=== PATIENT | male | born 1950 | race Caucasian/White ===

== ENCOUNTER 2020-08-10 08:30 | Outpatient (RCR) | payer OTHER, SELFPAY ==
[2020-07-27 09:03] VITALS: BP 133/77; PULSE 104; TEMP 36.3
--- NOTE | 2020-07-27 12:10 | PCM.WC.HP ---
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 Status: Acute Code(s): C79.9 - Secondary malignant neoplasm of unspecified site; C67.9 - Malignant neoplasm of bladder, unspecified (3) Cancer of the bladder, stage IV Status: Acute Code(s): C67.9 - Malignant neoplasm of bladder, unspecified (4) PAD (peripheral artery disease) Status: Acute Code(s): I73.9 - Peripheral vascular disease, unspecified (5) History of heroin abuse Status: Acute Code(s): F11.11 - Opioid abuse, in remission History of Present Illness Date of Service: 07/27/20 Chief Complaint: Nonhealing abdominal ulcer History of Wound: Osvaldo Roman presents to the wound healing center on 07/27/2020 for evaluation of a nonhealing abdominal ulcer. He has a past medical history significant for stage IV bladder cancer, hypertension, hyperlipidemia, COPD, peripheral arterial disease, carotid stenosis and past heroin abuse. In 2019, he underwent a total cystectomy for stage IV bladder cancer. He has a urostomy. He reports that since that time, he had this area of his incision which would not heal. In February 2019 he underwent debridement of this area of his abdomen, and it subsequently healed. However, the area reopened and has remained open since May of 2019. He reports he has been cleansing the area with antibacterial soap and water daily. He at times uses iodoform gauze to dress his abdominal ulcer. He reports a small amount of brownish colored drainage, which is malodorous. 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 The patient is a former cigarette smoker, and currently smokes 1 cigar a day. He has had a chronic poor appetite and poor nutritional intake. He has chronic nausea and gastrointestinal fluctuations between constipation and diarrhea. The patient denies any fever, or chills. He denies any increasing pain, redness, swelling, or purulent drainage from affected area. Past Medical History Past Medical History: Chronic Problems Skin ulcer of abdominal wall with fat layer exposed (Chronic) COPD (chronic obstructive pulmonary disease) (Chronic) Hypertension (Chronic) Hyperlipidemia (Chronic) Review of Systems Constitutional: Reports: Weight Change. Denies: Chills, Fever Eyes: Denies: Pain, Vision Change HEENT: Denies: Difficulty Hearing, Difficulty Swallowing, Sinus Congestion Cardiovascular: Denies: Chest Pain, Palpitations Respiratory: Denies: Cough, Wheezing Gastrointestinal: Reports: Constipation, Diarrhea, Nausea Genitourinary: Reports: - - Urostomy Skin: Reports: Wounds - Abdominal ulcer Neurological: Denies: Slurred speech, Confusion Endocrine: Denies: Heat/ Cold Intolerance, Polydipsia, Polyuria Hematologic/ Lymphatic: Denies: Easy Bruising, Easy Bleeding - Physical Exam Vital Signs Temp Pulse BP 97.3 F L 104 H 133/77 H 07/27/20 09:03 07/27/20 09:03 07/27/20 09:03 General: Alert, Cooperative, No apparent distress HEENT: Atraumatic, Normocephalic Oral: Moist Mucosa Neck: Supple, Trachea Midline Lungs: Clear to auscultation, Normal air movement, No rhonchi, No wheeze, No rales Cardiovascular: Regular rate, Regular Rhythm Abdomen: Non Tender, - - Urostomy, stoma is red and moist, urine is yellow and clear Extremities: No clubbing, No cyanosis, No edema, Capillary Refill Less than 3 Seconds Skin: Ulcer/ Wound - Infraumbilical abdominal ulcer with subcutaneous layer exposed. Small amount of slough and devitalized tissue present. No periulcer erythema, warmth or swelling. No purulent or malodorous drainage. Wound Measurements and Assessment WC - Nurse 1 - General Ulcer Measurement Start: 07/27/20 09:02 Freq: Status: Active Protocol: Activity Type Activity Date Activity User E-Sign Co-Sign Detail Recorded Client Recorded Date Recorded By Document 07/27/20 09:03 KR [id number] 07/27/20 09:25 KR 07/27/20 09:03 Wound Center Nurse 1 [Ulcer Assessment] # 1 Abdomen -Current Size (cm) - Length 0.8 -Current Size (cm) - Width 1.1 -Current Size (cm) - Depth 0.2 -Total Square Cm 0.88 -Exudate Amt Small -Exudate Type Serosanguineous -Wound Margin Distinct, Outline Attached -Granulation Amt Small (1-33%) -Granulation Quality Red -Necrosis Amt Small (1-33%) -Necrotic Tissue Type Adherent Slough -Texture (Marichuy-wound Skin Appearance) Assessed, Scarring -Moisture (Marichuy-wound Skin Appearance No Abnormality, ) Assessed -Color (Marichuy-wound Skin Appearance) No Abnormality, Assessed -Temperature (Marichuy-wound Skin No Abnormality Appearance) (Pt Warm) -Tenderness on Palpation (Marichuy-wound No Skin Appearance) -Ulcer Cleansing Rinsed/ Irrigated with Saline -Foul Odor after Cleansing No -Anesthetic Used 5% Lidocaine Gel SP - Nurse 2 - General Ulcer CM Notes Start: 07/27/20 09:02 Freq: Status: Active Protocol: Activity Type Activity Date Activity User E-Sign Co-Sign Detail Recorded Client Recorded Date Recorded By Document 07/27/20 09:40 JYOTI [id number] 07/27/20 09:59 07/27/20 09:40 Wound Center Nurse 2 [Procedure/Treatment] -Time 09:52 -Correct Patient Yes -Correct Side, Site, Position Yes -Correct Procedure Yes -Procedure Performed Yes -Type of Procedure Debridement -Clinical Debridement Subcutaneous -Tissue Removed Subcutaneous -Post Debridement (cm) - Length 1 -Post Debridement (cm) - Width 1.1 -Post Debridement (cm) - Depth 0.2 -Total Square (Post) (cm) 1.1 -Area of Debridement (cm) - Length 1 -Area of Debridement (cm) - Width 1.1 -Total Square (Area) (cm) 1.1 -Tunneling No -Undermining/Tunneling No -Circular Undermining No -Wound/Ulcer Outcome Not Healed -Ulcer Cleansing Rinsed/ Irrigated with Saline -Foul Odor after Cleansing No -Bioengineered Tissue No -Bleeding Controlled with Pressure -Offloading No -Treatment Response Procedure Tolerated Well -Debridement - Subq, 1st 20sq cm Yes [See Physician Procedure note for Specifics] Pain Scale: 0-10 Numeric [Pain] -Is Patient Pain Free? Yes SP - Nurse 3 - General Ulcer D/C NN Start: 07/27/20 09:02 Freq: Status: Cancelled Protocol: Activity Type Activity Date Activity User E-Sign Co-Sign Detail Recorded Client Recorded Date Recorded By Document 07/27/20 09:03 KR [id number] 07/27/20 09:25 KR Edit Status 07/27/20 09:25 KR Active=>Cancelled [id number] 07/27/20 09:25 KAREN 07/27/20 09:03 Vital Signs [Temperature Protocol: VS] -Temperature (97.8 F-99.1 F) 97.3 F L -Temperature Source Temporal [Pulse] -Pulse Rate (60-100) 104 H -Pulse Location Monitor [Blood Pressure] -Blood Pressure (90/60-120/80) 133/77 H -Blood Pressure Mean (mm Hg) 95 -Source Monitor -Position Sitting -Blood Pressure Location Right Arm Pain Scale: 0-10 Numeric [Pain] -Is Patient Pain Free? Yes Musculoskeletal: Muscle Wasting Neurological: Neuro grossly intact Psych/Mental Status: Normal Affect, Appropriate Debridement Note Post-Debridement Measurements/Treatment WC - Nurse 2 - General Ulcer CM Notes Start: 07/27/20 09:02 Freq: Status: Active Protocol: Activity Type Activity Date Activity User E-Sign Co-Sign Detail Recorded Client Recorded Date Recorded By Document 07/27/20 09:40 JYOTI [id number] 07/27/20 09:59 JYOTI 07/27/20 09:40 Wound Center Nurse 2 # 1 Abdomen -Time 09:52 -Correct Patient Yes -Correct Side, Site, Position Yes -Correct Procedure Yes -Procedure Performed Yes -Type of Procedure Debridement -Clinical Debridement Subcutaneous -Tissue Removed Subcutaneous -Post Debridement (cm) - Length 1 -Post Debridement (cm) - Width 1.1 -Post Debridement (cm) - Depth 0.2 -Total Square (Post) (cm) 1.1 -Area of Debridement (cm) - Length 1 -Area of Debridement (cm) - Width 1.1 -Total Square (Area) (cm) 1.1 -Tunneling No -Undermining/Tunneling No -Circular Undermining No -Wound/Ulcer Outcome Not Healed -Ulcer Cleansing Rinsed/ Irrigated with Saline -Foul Odor after Cleansing No -Bioengineered Tissue No -Bleeding Controlled with Pressure -Offloading No -Treatment Response Procedure Tolerated Well -Debridement - Subq, 1st 20sq cm Yes Pain Scale: 0-10 Numeric Is Patient Pain Free? Yes WC - Nurse 3 - General Ulcer D/C NN Start: 07/27/20 09:02 Freq: Status: Cancelled Protocol: Activity Type Activity Date Activity User E-Sign Co-Sign Detail Recorded Client Recorded Date Recorded By Document 07/27/20 09:03 KAREN [id number] 07/27/20 09:25 KR 07/27/20 09:03 Vital Signs Temperature (97.8 F-99.1 F) 97.3 F L Temperature Source Temporal Pulse Rate (60-100) 104 H Pulse Location Monitor Blood Pressure (90/60-120/80) 133/77 H Blood Pressure Mean (mm Hg) 95 Source Monitor Position Sitting Blood Pressure Location Right Arm Pain Scale: 0-10 Numeric Is Patient Pain Free? 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 Franci applied. At home wound-care instructions: Cleanse the ulcer daily with antibacterial soap and water. Apply new Franci dressing daily. Change Franci dressing more frequently if contaminated. Avoid pressure/friction of clothing waistbands at the site of the abdominal ulcer. Diet: Patient encouraged to increase protein and vitamin C intake while taking caution to avoid high carbohydrate and/or sugar intake. He was educated on the importance of protein and its role in wound healing. The patient was educated on the importance of smoking cessation. Labs/cultures/imaging: Cultures deferred today; no clinical signs or symptoms of infection. Lab results will be requested from [facility] for review. Follow-up: Return to clinic in 2 weeks for re-evaluation. Return sooner or report to the emergency room should symptoms worsen, or new symptoms arise. Note: [employer] speech recognition oven press tender software was used to create portions of this document. Sound-alike and misspelled words, as well as other oven press tender errors may be contained in the documentation. Office Visits / Consults: [id number] OV L4 New [id number]: [id number] Kellei subq tissue 20 sq cm/<
--- NOTE | 2020-08-01 15:38 | WC ---
Patients called stated that she might think his wound was infected, she was instructed to have the patient go to the ER for evaluation and possible treatment. She stated that she would have the physician at the cancer clinic evaluate the wound the next day.
[2020-08-10 08:41] VITALS: BP 128/75; PULSE 103; TEMP 35.8
--- NOTE | 2020-08-10 09:01 | PN.PCM_ITS ---
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 Status: Acute Code(s): C79.9 - Secondary malignant neoplasm of unspecified site; C67.9 - Malignant neoplasm of bladder, unspecified (3) Cancer of the bladder, stage IV Status: Acute Code(s): C67.9 - Malignant neoplasm of bladder, unspecified (4) PAD (peripheral artery disease) Status: Acute Code(s): I73.9 - Peripheral vascular disease, unspecified (5) History of heroin abuse Status: Acute Code(s): F11.11 - Opioid abuse, in remission Type of Wound Date of Service: 08/10/20 Chief Complaint: Nonhealing abdominal ulcer History of Wound: Osvaldo Roman presents to the wound healing center on 07/27/2020 for evaluation of a nonhealing abdominal ulcer. He has a past medical history significant for stage IV bladder cancer, hypertension, hyperlipidemia, COPD, peripheral arterial disease, carotid stenosis and past heroin abuse. In 2019, he underwent a total cystectomy for stage IV bladder cancer. He has a urostomy. He reports that since that time, he had this area of his incision which would not heal. In February 2019 he underwent debridement of this area of his abdomen, and it subsequently healed. However, the area reopened and has remained open since May of 2019. He reports he has been cleansing the area with antibacterial soap and water daily. He at times uses iodoform gauze to dress his abdominal ulcer. He reports a small amount of brownish colored drainage, which is malodorous. 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 The patient is a former cigarette smoker, and currently smokes 1 cigar a day. He has had a chronic poor appetite and poor nutritional intake. He has chronic nausea and gastrointestinal fluctuations between constipation and diarrhea. The patient denies any fever, or chills. He denies any increasing pain, redness, swelling, or purulent drainage from affected area. Progress of Wound: The patient returns for a follow-up visit. He has been using Franci to his abdomen ulcer and tolerating this well. The patient denies any fever, chills, nausea, vomiting, or diarrhea. Denies any increasing pain, redness, swelling, or malodorous drainage from affected area. Patient's support person reports a small amount of purulent drainage approximately one week ago which has since resolved. There are no clinical signs of infection today. The patient has a poor appetite, which has been ongoing since beginning radiation therapy. He is not consistent with the use of protein supplementation or Mathew. - Physical Exam Vital Signs Temp Pulse BP 96.5 F L 103 H 128/75 H 08/10/20 08:41 08/10/20 08:41 08/10/20 08:41 General: Alert, Cooperative, No apparent distress HEENT: Atraumatic, Normocephalic Oral: Moist Mucosa Neck: Supple, Trachea Midline Lungs: Normal air movement Abdomen: - - Urostomy, stoma is red and moist, urine is yellow and clear Extremities: Capillary Refill Less than 3 Seconds Skin: Ulcer/ Wound - Infraumbilical abdominal ulcer with subcutaneous layer exposed. Small amount of slough in devitalized tissue present. No periulcer erythema, warmth or swelling. No purulent or malodorous drainage. Wound Measurements and Assessment WC - Nurse 1 - General Ulcer Measurement Start: 07/27/20 09:02 Freq: Status: Active Protocol: Activity Type Activity Date Activity User E-Sign Co-Sign Detail Recorded Client Recorded Date Recorded By Document 08/10/20 08:41 KAREN [id number] 08/10/20 08:45 KAREN 08/10/20 08:41 Wound Center Nurse 1 [Ulcer Assessment] # 1 Abdomen -Current Size (cm) - Length 1 -Current Size (cm) - Width 0.9 -Current Size (cm) - Depth 0.3 -Total Square Cm 0.9 -Exudate Amt Medium -Exudate Type Serosanguineous -Wound Margin Distinct, Outline Attached -Granulation Amt Medium (34-66%) -Granulation Quality Red -Necrosis Amt Medium (34-66%) -Necrotic Tissue Type Adherent Slough -Texture (Marichuy-wound Skin Appearance) Assessed, Scarring -Moisture (Marichuy-wound Skin Appearance No Abnormality, ) Assessed -Color (Marichuy-wound Skin Appearance) No Abnormality, Assessed -Temperature (Marichuy-wound Skin No Abnormality Appearance) (Pt Warm) -Tenderness on Palpation (Marichuy-wound No Skin Appearance) -Ulcer Cleansing Rinsed/ Irrigated with Saline -Foul Odor after Cleansing No -Anesthetic Used 4% Lidocaine Solution Musculoskeletal: Muscle Wasting Psych/Mental Status: Normal Affect, Appropriate Debridement Note Post-Debridement Measurements/Treatment SP - Nurse 2 - General Ulcer CM Notes Start: 07/27/20 09:02 Freq: Status: Active Protocol: Activity Type Activity Date Activity User E-Sign Co-Sign Detail Recorded Client Recorded Date Recorded By Document 07/27/20 09:40 [id number] 07/27/20 09:59 JYOTI 07/27/20 09:40 Wound Center Nurse 2 # 1 Abdomen -Time 09:52 -Correct Patient Yes -Correct Side, Site, Position Yes -Correct Procedure Yes -Procedure Performed Yes -Type of Procedure Debridement -Clinical Debridement Subcutaneous -Tissue Removed Subcutaneous -Post Debridement (cm) - Length 1 -Post Debridement (cm) - Width 1.1 -Post Debridement (cm) - Depth 0.2 -Total Square (Post) (cm) 1.1 -Area of Debridement (cm) - Length 1 -Area of Debridement (cm) - Width 1.1 -Total Square (Area) (cm) 1.1 -Tunneling No -Undermining/Tunneling No -Circular Undermining No -Wound/Ulcer Outcome Not Healed -Ulcer Cleansing Rinsed/ Irrigated with Saline -Foul Odor after Cleansing No -Bioengineered Tissue No -Bleeding Controlled with Pressure -Offloading No -Treatment Response Procedure Tolerated Well -Debridement - Subq, 1st 20sq cm Yes Pain Scale: 0-10 Numeric Is Patient Pain Free? Yes - Nurse 3 - General Ulcer D/C NN Start: 07/27/20 09:02 Freq: Status: Cancelled Protocol: Activity Type Activity Date Activity User E-Sign Co-Sign Detail Recorded Client Recorded Date Recorded By Document 07/27/20 09:03 KR [id number] 07/27/20 09:25 KR 07/27/20 09:03 Vital Signs Temperature (97.8 F-99.1 F) 97.3 F L Temperature Source Temporal Pulse Rate (60-100) 104 H Pulse Location Monitor Blood Pressure (90/60-120/80) 133/77 H Blood Pressure Mean (mm Hg) 95 Source Monitor Position Sitting Blood Pressure Location Right Arm Pain Scale: 0-10 Numeric Is Patient Pain Free? 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 Franci applied. At home wound- care instructions: Cleanse the ulcer daily with antibacterial soap and water. Apply new Franci dressing daily. Change Franci dressing more frequently if contaminated. Avoid pressure/friction of clothing waistbands at the site of the abdominal ulcer. Diet: Patient encouraged to increase protein and vitamin C intake while taking caution to avoid high carbohydrate and/or sugar intake. He was educated on the importance of protein and its role in wound healing. The patient was educated on the importance of smoking cessation. Labs/cultures/imaging: Cultures deferred today; no clinical signs or symptoms of infection. Lab results will again be requested from [facility] for review. Follow-up: Return to clinic in 1 week for re-evaluation. Return sooner or report to the emergency room should symptoms worsen, or new symptoms arise. Note: [employer] speech recognition vice president [employer] general [employer] [place] software was used to create portions of this document. Sound-alike and misspelled words, as well as other vice president [employer] general [employer] [place] errors may be contained in the documentation. [id number]: [id number] Kellie subq tissue 20 sq cm/<
== END 2020-08-12 23:59 ==
LOC: WC 08:30
PROVIDERS: PCP Internal Medicine; Referring Provider Nurse Practitioner Primary Care; Visit Provider Nurse Practitioner Family
DX: L98.492 Non-pressure chronic ulcer of skin of other sites with fat layer exposed (principal); C79.9 Secondary malignant neoplasm of unspecified site; C67.9 Malignant neoplasm of bladder, unspecified; I73.9 Peripheral vascular disease, unspecified; E78.5 Hyperlipidemia, unspecified; I10 Essential (primary) hypertension; J44.9 Chronic obstructive pulmonary disease, unspecified; F11.11 Opioid abuse, in remission; Z93.6 Other artificial openings of urinary tract status; K59.00 Constipation, unspecified; F17.290 Nicotine dependence, other tobacco product, uncomplicated
CPT/HCPCS: 11042; 99213; G0463

== ENCOUNTER 2020-08-31 08:30 | Outpatient (RCR) | payer OTHER, SELFPAY ==
[2020-08-13 00:37] VITALS: BP 128/75; PULSE 103; TEMP 35.8
[2020-08-17 08:36] VITALS: BP 124/83; PULSE 102; TEMP 35.6
--- NOTE | 2020-08-17 09:01 | PN.PCM_ITS ---
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 He has a past medical history significant for stage IV bladder cancer, hypertension, hyperlipidemia, COPD, peripheral arterial disease, carotid stenosis and past heroin abuse. In 2019, he underwent a total cystectomy for stage IV bladder cancer. He has a urostomy. He reports that since that time, he had this area of his incision which would not heal. In February 2019 he underwent debridement of this area of his abdomen, and it subsequently healed. However, the area reopened and has remained open since May of 2019. He reports he has been cleansing the area with antibacterial soap and water daily. He at times uses iodoform gauze to dress his abdominal ulcer. He reports a small amount of brownish colored drainage, which is malodorous. 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 The patient is a former cigarette smoker, and currently smokes 1 cigar a day. He has had a chronic poor appetite and poor nutritional intake. He has chronic nausea and gastrointestinal fluctuations between constipation and diarrhea. The patient denies any fever, or chills. He denies any increasing pain, redness, swelling, or purulent drainage from affected area. Progress of Wound: The patient returns for a follow-up visit. He has been using Franci to his abdomen ulcer and tolerating this well. His wound is slowly improving. A retained suture was removed in its entirety from the wound today. The patient denies any fever, chills, nausea, vomiting, or diarrhea. Denies any increasing pain, redness, swelling, or purulent and/or malodorous drainage from affected area. There are no clinical signs of infection today. The patient has a poor appetite, which has been ongoing since beginning radiation therapy. He has not been consistent with the use of protein supplementation or Mathew, though he reports improvement in his diet in the past week. - Physical Exam Vital Signs Temp Pulse BP 96.0 F L 102 H 124/83 H 08/17/20 08:36 08/17/20 08:36 08/17/20 08:36 General: Alert, Cooperative, No apparent distress HEENT: Normocephalic Lungs: Normal air movement Abdomen: Soft, Non Tender Extremities: Capillary Refill Less than 3 Seconds Skin: Ulcer/ Wound - Infraumbilical abdominal ulcer with subcutaneous layer exposed. Small amount of slough and devitalized tissue present. No periulcer erythema, warmth, or swelling. No purulent or malodorous drainage. A single, retained blue suture was identified and removed in its entirety from within the ulcer. Wound Measurements and Assessment WC - Nurse 1 - General Ulcer Measurement Start: 08/17/20 08:36 Freq: Status: Active Protocol: Activity Type Activity Date Activity User E-Sign Co-Sign Detail Recorded Client Recorded Date Recorded By Document 08/17/20 08:36 KAREN [id number] 08/17/20 08:42 KAREN 08/17/20 08:36 Wound Center Nurse 1 [Ulcer Assessment] # 1 Abdomen -Current Size (cm) - Length 1 -Current Size (cm) - Width 1 -Current Size (cm) - Depth 0.1 -Total Square Cm 1 -Exudate Amt None Present -Wound Margin Distinct, Outline Attached -Granulation Amt Medium (34-66%) -Granulation Quality Pale -Necrosis Amt Medium (34-66%) -Necrotic Tissue Type Adherent Slough -Texture (Marichuy-wound Skin Appearance) Assessed, Scarring -Moisture (Marichuy-wound Skin Appearance No Abnormality, ) Assessed -Color (Marichuy-wound Skin Appearance) No Abnormality, Assessed -Temperature (Marichuy-wound Skin No Abnormality Appearance) (Pt Warm) -Tenderness on Palpation (Marichuy-wound No Skin Appearance) -Ulcer Cleansing Rinsed/ Irrigated with Saline -Foul Odor after Cleansing No -Anesthetic Used 5% Lidocaine Gel Psych/Mental Status: Normal Affect, Appropriate Debridement Note Wound debrided: Infraumbilical abdominal ulcer Laterality: Not Applicable Type of Debridement: Excisional debridement Anesthesia Used: 5% Lidocaine Gel Depth: in the subcutaneous layer Percentage of wound debrided: 100 Instrument Used: 3mm curette Tissue Removed: Slough and devitalized tissue; single retained suture Severity: Fat Layer Exposed Amount of bleeding with debridement: Mild Bleeding Controlled with: Pressure Patient tolerated procedure well Assessment/Plan Active Problems Skin ulcer of abdominal wall with fat layer exposed (Chronic) Metastasis from bladder cancer (Chronic) PAD (peripheral artery disease) (Chronic) History of heroin abuse (Acute) Wound dehiscence, surgical (Chronic) Assessment: As above Plan: Debridement performed today in clinic. A single, retained blue suture was identified and removed in its entirety from within the infraumbilical abdominal ulcer. I suspect this may have been a factor in the patient's initial reopening of his abdominal surgical site and his continued delayed abdominal wound healing. Franci applied. At home wound-care instructions: Cleanse the ulcer daily with antibacterial soap and water. Apply new Franci dressing daily. Change Franci dressing more frequently if contaminated. Avoid pressure/friction of clothing waistbands at the site of the abdominal ulcer. Diet: Patient encouraged to increase protein and vitamin C intake while taking caution to avoid high carbohydrate and/or sugar intake. He was educated on the importance of protein and its role in wound healing. The patient was educated on the importance of smoking cessation. Labs/cultures/imaging: Cultures deferred today; no clinical signs or symptoms of infection. No lab results have yet been received from [facility] for review. Follow-up: Return to clinic in 2 weeks for re-evaluation. Return sooner or report to the emergency room should symptoms worsen, or new symptoms arise. Note: charming charlie speech recognition bagger and stock handler helper software was used to create portions of this document. Sound-alike and misspelled words, as well as other bagger and stock handler helper errors may be contained in the documentation. [id number]: [id number] Kellie subq tissue 20 sq cm/<
[2020-08-31 08:30] VITALS: BP 155/77; PULSE 88; RESP 18; TEMP 36
--- NOTE | 2020-08-31 09:20 | PN.PCM_ITS ---
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 He has a past medical history significant for stage IV bladder cancer, hypertension, hyperlipidemia, COPD, peripheral arterial disease, carotid stenosis and past heroin abuse. In 2019, he underwent a total cystectomy for stage IV bladder cancer. He has a urostomy. He reports that since that time, he had this area of his incision which would not heal. In February 2019 he underwent debridement of this area of his abdomen, and it subsequently healed. However, the area reopened and has remained open since May of 2019. He reports he has been cleansing the area with antibacterial soap and water daily. He at times uses iodoform gauze to dress his abdominal ulcer. He reports a small amount of brownish colored drainage, which is malodorous. 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 The patient is a former cigarette smoker, and currently smokes 1 cigar a day. He has had a chronic poor appetite and poor nutritional intake. He has chronic nausea and gastrointestinal fluctuations between constipation and diarrhea. The patient denies any fever, or chills. He denies any increasing pain, redness, swelling, or purulent drainage from affected area. Progress of Wound: The patient returns for a follow-up visit. He has been using Franci to his abdomen ulcer and tolerating this well. His wound is slowly improving. A retained suture was removed in its entirety from the wound on 08/24/20. The patient denies any fever, chills, nausea, vomiting, or diarrhea. Denies any increasing pain, redness, swelling, or purulent and/or malodorous drainage from affected area. Reports only a small amount of drainage. There are no clinical signs of infection today. The patient reports increasing his food and protein intake. - Physical Exam Vital Signs Temp Pulse Resp BP 96.8 F L 88 18 155/77 H 08/31/20 08:30 08/31/20 08:30 08/31/20 08:30 08/31/20 08:30 General: Alert, Cooperative, No apparent distress Oral: Moist Mucosa Extremities: Capillary Refill Less than 3 Seconds Skin: Ulcer/ Wound - Infraumbilical abdominal ulcer with subcutaneous layer exposed. Small amount of slough and devitalized tissue present. No periulcer erythema, warmth or swelling. No purulent or malodorous drainage. Wound Measurements and Assessment WC - Nurse 1 - General Ulcer Measurement Start: 08/17/20 08:36 Freq: Status: Active Protocol: Activity Type Activity Date Activity User E-Sign Co-Sign Detail Recorded Client Recorded Date Recorded By Document 08/31/20 08:30 DE [id number] 08/31/20 08:36 MS 08/31/20 08:30 Wound Center Nurse 1 [Ulcer Assessment] # 1 Abdomen -Current Size (cm) - Length 0.5 -Current Size (cm) - Width 0.4 -Current Size (cm) - Depth 0.1 -Total Square Cm 0.20 -Photo Taken No -Exudate Amt Small -Exudate Type Yellow/Green -Wound Margin Distinct, Outline Attached -Granulation Amt Large (67-100%) -Granulation Quality Red -Necrosis Amt Small (1-33%) -Necrotic Tissue Type Adherent Slough -Structure Exposed N/A -Texture (Marichuy-wound Skin Appearance) Scarring -Moisture (Marichuy-wound Skin Appearance Dry/Scaly ) -Color (Marichuy-wound Skin Appearance) No Abnormality -Temperature (Marichuy-wound Skin No Abnormality Appearance) (Pt Warm) -Tenderness on Palpation (Marichuy-wound No Skin Appearance) -Ulcer Cleansing Wound Cleanser -Foul Odor after Cleansing No -Anesthetic Used 4% Lidocaine Solution - Nurse 3 - General Ulcer D/C NN Start: 08/17/20 08:36 Freq: Status: Active Protocol: Activity Type Activity Date Activity User E-Sign Co-Sign Detail Recorded Client Recorded Date Recorded By Document 08/31/20 09:01 MS [id number] 08/31/20 09:02 MS 08/31/20 09:01 Wound Care Nurse 3 [Wound Dressing] -Ulcer Cleansing Rinsed/ Irrigated with Saline -Primary Dressing Applied Promogran Franci Matter -Primary Dressing Covered/Secured Dry Gauze, with Secured with Tape -Promogran Franci Matter 1 Pain Scale: 0-10 Numeric [Pain] -Is Patient Pain Free? Yes - Visit Discharge [Visit Discharge Information] -Discharge Condition Stable -Ambulatory Status Ambulatory -Medication Reconcilliation completed No & provided to patient/care provider -Clinical Summary of Care Provided Yes Musculoskeletal: Tenderness - on debridement of wound Psych/Mental Status: Normal Affect, Appropriate Debridement Note Post-Debridement Measurements/Treatment SP - Nurse 2 - General Ulcer CM Notes Start: 08/17/20 08:36 Freq: Status: Active Protocol: Activity Type Activity Date Activity User E-Sign Co-Sign Detail Recorded Client Recorded Date Recorded By Document 08/17/20 10:04 KEVIN [id number] 08/17/20 10:05 PL 08/17/20 10:04 Wound Center Nurse 2 # 1 Abdomen -Time 08:49 -Correct Patient Yes -Correct Side, Site, Position Yes -Correct Procedure Yes -Procedure Performed Yes -Type of Procedure Debridement -Clinical Debridement Subcutaneous -Tissue Removed Subcutaneous -Post Debridement (cm) - Length 0.9 -Post Debridement (cm) - Width 0.7 -Post Debridement (cm) - Depth 0.5 -Total Square (Post) (cm) 0.63 -Area of Debridement (cm) - Length 0.9 -Area of Debridement (cm) - Width 0.7 -Total Square (Area) (cm) 0.63 -Tunneling No -Undermining/Tunneling No -Circular Undermining No -Wound/Ulcer Outcome Not Healed -Ulcer Cleansing Rinsed/ Irrigated with Saline -Foul Odor after Cleansing No -Bioengineered Tissue No -Bleeding Controlled with Pressure -Treatment Response Procedure Tolerated Well -Debridement - Subq, 1st 20sq cm Yes Pain Scale: 0-10 Numeric Is Patient Pain Free? Yes - Nurse 3 - General Ulcer D/C NN Start: 08/17/20 08:36 Freq: Status: Active Protocol: Activity Type Activity Date Activity User E-Sign Co-Sign Detail Recorded Client Recorded Date Recorded By Document 08/17/20 09:07 KR [id number] 08/17/20 09:08 KR Document 08/31/20 09:01 MS [id number] 08/31/20 09:02 MS 08/17/20 08/31/20 09:07 09:01 Wound Care Nurse 3 # 1 Abdomen -Ulcer Cleansing Rinsed/ Rinsed/ Irrigated with Irrigated with Saline Saline -Primary Dressing Applied Promogran Promogran Franci Matter Franci Matter -Primary Dressing Covered/Secured with Dry Gauze, Dry Gauze, Secured with Secured with Tape Tape -Promogran Franci Matter 1 1 Pain Scale: 0-10 Numeric Is Patient Pain Free? Yes Yes WC - Visit Discharge Discharge Condition Stable Stable Ambulatory Status Ambulatory Ambulatory Transportation Private Auto Accompanied by Medication Reconcilliation completed & No provided to patient/care provider Clinical Summary of Care Provided Yes Wound debrided: Infraumbilical abdominal ulcer Laterality: Not Applicable Type of Debridement: Excisional debridement Depth: in the subcutaneous layer Percentage of wound debrided: 100 Instrument Used: 3mm curette Tissue Removed: Slough and devitalized tissue Severity: Fat Layer Exposed Amount of bleeding with debridement: Mild Bleeding Controlled with: Pressure Patient tolerated procedure well Assessment/Plan Active Problems Skin ulcer of abdominal wall with fat layer exposed (Chronic) Metastasis from bladder cancer (Chronic) PAD (peripheral artery disease) (Chronic) History of heroin abuse (Chronic) Wound dehiscence, surgical (Chronic) Assessment: As above Plan: Debridement performed today in clinic. A single, retained blue suture was identified and removed in its entirety from within the infraumbilical abdominal ulcer on 08/24/2020. I suspect this may have been a factor in the patient's initial reopening of his abdominal surgical site and his continued delayed abdominal wound healing. We will continue Franci dressings, but will change frequency of dressing changes to every other day. At home wound-care instructions: Cleanse the ulcer every other day with antibacterial soap and water. Apply new Franci dressing every other day. Change Franci dressing more frequently if contaminated. Avoid pressure/friction of clothing waistbands at the site of the abdominal ulcer. Diet: Patient encouraged to increase protein and vitamin C intake while taking caution to avoid high carbohydrate and/or sugar intake. He was educated on the importance of protein and its role in wound healing. The patient was educated on the importance of smoking cessation. Labs/cultures/imaging: Cultures deferred today; no clinical signs or symptoms of infection. No lab results have yet been received from [facility] for review; these were again requested today by myself personally. Follow-up: Return to clinic in 2 weeks for re-evaluation. Return sooner or report to the emergency room should symptoms worsen, or new symptoms arise. Note: [employer]vate speech recognition conflicts analyst software was used to create portions of this document. Sound-alike and misspelled words, as well as other conflicts analyst errors may be contained in the documentation. 111xxx-[id number]: [id number] Kellie subq tissue 20 sq cm/<
== END 2020-09-09 23:59 ==
LOC: WC 08:30
PROVIDERS: PCP Internal Medicine; Referring Provider Nurse Practitioner Primary Care; Visit Provider Nurse Practitioner Family
DX: L98.492 Non-pressure chronic ulcer of skin of other sites with fat layer exposed (principal); C67.9 Malignant neoplasm of bladder, unspecified; C77.9 Secondary and unspecified malignant neoplasm of lymph node, unspecified; F11.11 Opioid abuse, in remission; I73.9 Peripheral vascular disease, unspecified; Z93.6 Other artificial openings of urinary tract status; Z87.891 Personal history of nicotine dependence; J44.9 Chronic obstructive pulmonary disease, unspecified; I10 Essential (primary) hypertension; E78.5 Hyperlipidemia, unspecified
CPT/HCPCS: 11042

== ENCOUNTER 2020-09-28 08:30 | Outpatient (RCR) | payer OTHER, SELFPAY ==
[2020-09-10 00:31] VITALS: BP 155/77; PULSE 88; RESP 18; TEMP 36
[2020-09-14 08:34] VITALS: BP 134/81; PULSE 89; TEMP 36.1
--- NOTE | 2020-09-14 12:47 | PCM.WC.PN ---
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 Status: Chronic Code(s): C79.9 - Secondary malignant neoplasm of unspecified site; C67.9 - Malignant neoplasm of bladder, unspecified (4) PAD (peripheral artery disease) Status: Chronic Code(s): I73.9 - Peripheral vascular disease, unspecified (5) Cancer of the bladder, stage IV Status: Resolved Code(s): C67.9 - Malignant neoplasm of bladder, unspecified (6) History of heroin abuse Status: Chronic Code(s): F11.11 - Opioid abuse, in remission Type of Wound Date of Service: 09/14/20 Chief Complaint: Nonhealing abdominal ulcer History of Wound: Osvaldo Roman presents to the wound healing center on 07/27/2020 for evaluation of a nonhealing abdominal ulcer. He has a past medical history significant for stage IV bladder cancer, hypertension, hyperlipidemia, COPD, peripheral arterial disease, carotid stenosis and past heroin abuse. In 2019, he underwent a total cystectomy for stage IV bladder cancer. He has a urostomy. He reports that since that time, he had this area of his incision which would not heal. In February 2019 he underwent debridement of this area of his abdomen, and it subsequently healed. However, the area reopened and has remained open since May of 2019. He reports he has been cleansing the area with antibacterial soap and water daily. He at times uses iodoform gauze to dress his abdominal ulcer. He reports a small amount of brownish colored drainage, which is malodorous. 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 The patient is a former cigarette smoker, and currently smokes 1 cigar a day. He has had a chronic poor appetite and poor nutritional intake. He has chronic nausea and gastrointestinal fluctuations between constipation and diarrhea. The patient denies any fever, or chills. He denies any increasing pain, redness, swelling, or purulent drainage from affected area. Progress of Wound: The patient returns for a follow-up visit. He has been using Franci to his abdomen ulcer and tolerating this well. His wound is slowly improving. A retained suture was removed in its entirety from the wound on 08/24/20. The patient denies any fever, chills, nausea, vomiting, or diarrhea. Denies any increasing pain, redness, swelling, or purulent and/or malodorous drainage from affected area. Reports only a small amount of drainage. There are no clinical signs of infection today. The patient reports increasing his food and protein intake. - Physical Exam Vital Signs Temp Pulse Resp BP 96.9 F L 89 18 134/81 H 09/14/20 08:34 09/14/20 08:34 09/10/20 00:31 09/14/20 08:34 General: Alert, Cooperative, No apparent distress HEENT: Atraumatic Oral: Moist Mucosa Lungs: Normal air movement Extremities: Capillary Refill Less than 3 Seconds Skin: Ulcer/ Wound - Infraumbilical abdominal ulcer with subcutaneous layer exposed. Small amount of slough and devitalized tissue present. No periulcer erythema, warmth or swelling. No purulent or malodorous drainage. Wound Measurements and Assessment WC - Nurse 1 - General Ulcer Measurement Start: 09/14/20 08:32 Freq: Status: Active Protocol: Activity Type Activity Date Activity User E-Sign Co-Sign Detail Recorded Client Recorded Date Recorded By Document 09/14/20 08:34 KAREN [id number] 09/14/20 08:35 KAREN 09/14/20 08:34 Wound Center Nurse 1 [Ulcer Assessment] # 1 Abdomen -Current Size (cm) - Length 0.5 -Current Size (cm) - Width 0.5 -Current Size (cm) - Depth 0.3 -Total Square Cm 0.25 -Exudate Amt Small -Exudate Type Serosanguineous -Wound Margin Distinct, Outline Attached -Granulation Amt Medium (34-66%) -Granulation Quality Red -Necrosis Amt Medium (34-66%) -Necrotic Tissue Type Adherent Slough -Texture (Marichuy-wound Skin Appearance) Assessed, Scarring -Moisture (Marichuy-wound Skin Appearance No Abnormality, ) Assessed -Color (Marichuy-wound Skin Appearance) No Abnormality, Assessed -Temperature (Marichuy-wound Skin No Abnormality Appearance) (Pt Warm) -Tenderness on Palpation (Marichuy-wound No Skin Appearance) -Ulcer Cleansing Rinsed/ Irrigated with Saline -Foul Odor after Cleansing No -Anesthetic Used 4% Lidocaine Solution WC - Nurse 3 - General Ulcer D/C NN Start: 09/14/20 08:32 Freq: Status: Active Protocol: Activity Type Activity Date Activity User E-Sign Co-Sign Detail Recorded Client Recorded Date Recorded By Document 09/14/20 09:37 KAREN [id number] 09/14/20 09:38 KR 09/14/20 09:37 Wound Care Nurse 3 [Wound Dressing] -Ulcer Cleansing Rinsed/ Irrigated with Saline -Primary Dressing Applied Promogran Franci Matter -Primary Dressing Covered/Secured Dry Gauze, with Secured with Tape -Promogran Franci Matter 1 Pain Scale: 0-10 Numeric [Pain] -Is Patient Pain Free? Yes WC - Visit Discharge [Visit Discharge Information] -Discharge Condition Stable -Ambulatory Status Ambulatory -Transportation Private Auto Psych/Mental Status: Normal Affect, Appropriate Debridement Note Post-Debridement Measurements/Treatment WC - Nurse 3 - General Ulcer D/C NN Start: 09/14/20 08:32 Freq: Status: Active Protocol: Activity Type Activity Date Activity User E-Sign Co-Sign Detail Recorded Client Recorded Date Recorded By Document 09/14/20 09:37 KR [id number] 09/14/20 09:38 KR 09/14/20 09:37 Wound Care Nurse 3 # 1 Abdomen -Ulcer Cleansing Rinsed/ Irrigated with Saline -Primary Dressing Applied Promogran Franci Matter -Primary Dressing Covered/Secured with Dry Gauze, Secured with Tape -Promogran Franci Matter 1 Pain Scale: 0-10 Numeric Is Patient Pain Free? Yes WC - Visit Discharge Discharge Condition Stable Ambulatory Status Ambulatory Transportation Private Auto Wound debrided: Infraumbilical ulcer Laterality: Not Applicable Type of Debridement: Excisional debridement Anesthesia Used: 4% Lidocaine Solution Depth: in the subcutaneous layer Percentage of wound debrided: 100 Instrument Used: 3mm curette Tissue Removed: Slough and devitalized tissue Severity: Fat Layer Exposed Amount of bleeding with debridement: Mild Bleeding Controlled with: Pressure Patient tolerated procedure well Assessment/Plan Assessment: As above Plan: Debridement performed today in clinic. A single, retained blue suture was identified and removed in its entirety from within the infraumbilical abdominal ulcer on 08/24/2020. I suspect this may have been a factor in the patient's initial reopening of his abdominal surgical site and his continued delayed abdominal wound healing. We will continue Franci dressings every other day. At home wound-care instructions: Cleanse the ulcer every other day with antibacterial soap and water. Apply new Franci dressing every other day. Change Franci dressing more frequently if contaminated. Avoid pressure/friction of clothing waistbands at the site of the abdominal ulcer. Diet: Patient encouraged to increase protein and vitamin C intake while taking caution to avoid high carbohydrate and/or sugar intake. He was educated on the importance of protein and its role in wound healing. The patient was educated on the importance of smoking cessation. Labs/cultures/imaging: Cultures deferred today; no clinical signs or symptoms of infection. Labs from [facility] were reviewed (08/13/2020; CBCD, CMP): RBC 4.04 (L), platelets 416 (H), albumin 3.7 (L), estimated GFR >60. Follow-up: Return to clinic in 2 weeks for re-evaluation. Return sooner or report to the emergency room should symptoms worsen, or new symptoms arise. Note: [employer] speech recognition oil refinery operator software was used to create portions of this document. Sound-alike and misspelled words, as well as other oil refinery operator errors may be contained in the documentation. [id number]: [id number] Kellie subq tissue 20 sq cm/<
[2020-09-28 08:40] VITALS: BP 145/87; PULSE 85; RESP 16; TEMP 36.1
[2020-09-28 09:01] VITALS: BP 131/64
--- NOTE | 2020-09-28 13:51 | PCM.WC.PN ---
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 Status: Chronic Code(s): C79.9 - Secondary malignant neoplasm of unspecified site; C67.9 - Malignant neoplasm of bladder, unspecified (4) PAD (peripheral artery disease) Status: Chronic Code(s): I73.9 - Peripheral vascular disease, unspecified (5) Cancer of the bladder, stage IV Status: Resolved Code(s): C67.9 - Malignant neoplasm of bladder, unspecified (6) History of heroin abuse Status: Chronic Code(s): F11.11 - Opioid abuse, in remission Type of Wound Date of Service: 09/28/20 Chief Complaint: Nonhealing abdominal ulcer History of Wound: Osvaldo Roman presents to the wound healing center on 07/27/2020 for evaluation of a nonhealing abdominal ulcer. He has a past medical history significant for stage IV bladder cancer, hypertension, hyperlipidemia, COPD, peripheral arterial disease, carotid stenosis and past heroin abuse. In 2019, he underwent a total cystectomy for stage IV bladder cancer. He has a urostomy. He reports that since that time, he had this area of his incision which would not heal. In February 2019 he underwent debridement of this area of his abdomen, and it subsequently healed. However, the area reopened and has remained open since May of 2019. He reports he has been cleansing the area with antibacterial soap and water daily. He at times uses iodoform gauze to dress his abdominal ulcer. He reports a small amount of brownish colored drainage, which is malodorous. 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 The patient is a former cigarette smoker, and currently smokes 1 cigar a day. He has had a chronic poor appetite and poor nutritional intake. He has chronic nausea and gastrointestinal fluctuations between constipation and diarrhea. The patient denies any fever, or chills. He denies any increasing pain, redness, swelling, or purulent drainage from affected area. Progress of Wound: The patient returns for a follow-up visit. He has been using Franci to his abdomen ulcer and tolerating this well. A retained suture was removed in its entirety from the wound on 08/24/20. The patient denies any fever, chills, nausea, vomiting, or diarrhea. Denies any increasing pain, redness, swelling, or purulent and/or malodorous drainage from affected area. There is no visible opening to the abdominal ulcer today, though there is evidence of drainage on his dressing from the past 36 hours, and a very scant amount of drainage today though the precise source is unindentifiable. - Physical Exam Vital Signs Temp Pulse Resp BP 97 F L 85 16 131/64 H 09/28/20 08:40 09/28/20 08:40 09/28/20 08:40 09/28/20 09:01 General: Alert, Cooperative, No apparent distress HEENT: Atraumatic, Normocephalic Oral: Moist Mucosa Lungs: Normal air movement Abdomen: Soft, - - stoma is pink and moist Skin: Ulcer/ Wound - no visible opening; very scant serous drainage present Wound Measurements and Assessment WC - Nurse 1 - General Ulcer Measurement Start: 09/14/20 08:32 Freq: Status: Active Protocol: Activity Type Activity Date Activity User E-Sign Co-Sign Detail Recorded Client Recorded Date Recorded By Document 09/28/20 08:40 JYOTI [id number] 09/28/20 08:41 JYOTI 09/28/20 08:40 Wound Center Nurse 1 [Ulcer Assessment] # 1 Abdomen -Combined with other wound No -Current Size (cm) - Length 0.1 -Current Size (cm) - Width 0.1 -Current Size (cm) - Depth 0.1 -Total Square Cm 0.01 -Photo Taken No -Tunneling No -Undermining/Tunneling No -Circular Undermining No -Exudate Amt Small -Exudate Type Yellow/Green -Wound Margin Flat & Intact -Granulation Amt None Present (0 %) -Slough/Fibrin No -Structure Exposed N/A -Texture (Marichuy-wound Skin Appearance) Assessed -Moisture (Marichuy-wound Skin Appearance Assessed,Dry/ ) Scaly -Color (Marichuy-wound Skin Appearance) Assessed -Temperature (Marichuy-wound Skin No Abnormality Appearance) (Pt Warm) -Tenderness on Palpation (Marichuy-wound No Skin Appearance) -Ulcer Cleansing Rinsed/ Irrigated with Saline -Foul Odor after Cleansing No -Anesthetic Used 4% Lidocaine Solution [Edema Assessment] -Lower Limb Edema Present NA - Nurse 3 - General Ulcer D/C NN Start: 09/14/20 08:32 Freq: Status: Active Protocol: Activity Type Activity Date Activity User E-Sign Co-Sign Detail Recorded Client Recorded Date Recorded By Document 09/28/20 09:01 KAREN [id number] 09/28/20 09:02 KR 09/28/20 09:01 Wound Care Nurse 3 [Wound Dressing] # 1 Abdomen -Ulcer Cleansing Rinsed/ Irrigated with Saline -Foul Odor after Cleansing No -Primary Dressing Applied C Hydrogel ($) -Primary Dressing Covered/Secured Dry Gauze, with Secured with Tape Vital Signs [Blood Pressure] -Blood Pressure (90/60-120/80) 131/64 H -Blood Pressure Mean (mm Hg) 86 -Source Monitor -Position Sitting -Blood Pressure Location Left Arm Pain Scale: 0-10 Numeric [Pain] -Is Patient Pain Free? Yes - Visit Discharge [Visit Discharge Information] -Discharge Condition Stable -Ambulatory Status Ambulatory -Transportation Private Auto -Accompanied by Psych/Mental Status: Normal Affect, Appropriate Debridement Note Post-Debridement Measurements/Treatment - Nurse 2 - General Ulcer CM Notes Start: 09/14/20 08:32 Freq: Status: Active Protocol: Activity Type Activity Date Activity User E-Sign Co-Sign Detail Recorded Client Recorded Date Recorded By Document 09/14/20 13:13 KEVIN [id number] 09/14/20 13:14 PL 09/14/20 13:13 Wound Center Nurse 2 # 1 Abdomen -Time 09:13 -Correct Patient Yes -Correct Side, Site, Position Yes -Correct Procedure Yes -Procedure Performed Yes -Type of Procedure Debridement -Clinical Debridement Subcutaneous -Tissue Removed Subcutaneous -Post Debridement (cm) - Length 0.5 -Post Debridement (cm) - Width 0.5 -Post Debridement (cm) - Depth 0.2 -Total Square (Post) (cm) 0.25 -Area of Debridement (cm) - Length 0.5 -Area of Debridement (cm) - Width 0.5 -Total Square (Area) (cm) 0.25 -Tunneling No -Undermining/Tunneling No -Circular Undermining No -Wound/Ulcer Outcome Not Healed -Ulcer Cleansing Rinsed/ Irrigated with Saline -Foul Odor after Cleansing No -Bioengineered Tissue No -Debridement - Subq, 1st 20sq cm Yes Pain Scale: 0-10 Numeric Is Patient Pain Free? Yes - Nurse 3 - General Ulcer D/C NN Start: 09/14/20 08:32 Freq: Status: Active Protocol: Activity Type Activity Date Activity User E-Sign Co-Sign Detail Recorded Client Recorded Date Recorded By Document 09/14/20 09:37 KR [id number] 09/14/20 09:38 KR Document 09/28/20 09:01 KR [id number] 09/28/20 09:02 KR 09/14/20 09/28/20 09:37 09:01 Wound Care Nurse 3 # 1 Abdomen -Ulcer Cleansing Rinsed/ Rinsed/ Irrigated with Irrigated with Saline Saline -Foul Odor after Cleansing No -Primary Dressing Applied Promogran C Hydrogel ($) Franci Matter -Primary Dressing Covered/Secured with Dry Gauze, Dry Gauze, Secured with Secured with Tape Tape -Promogran Franci Matter 1 Vital Signs Blood Pressure (90/60-120/80) 131/64 H Blood Pressure Mean (mm Hg) 86 Source Monitor Position Sitting Blood Pressure Location Left Arm Pain Scale: 0-10 Numeric Is Patient Pain Free? 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 There is a very scant amount of serous drainage seen today, though the precise source is unidentifiable. I will have the patient perform daily cleansing of the infraumbilical site with antibacterial soap and water, and apply hydrogel daily, covering with gauze for protection. Avoid pressure/friction of clothing waistbands at the site of the abdominal ulcer. Diet: Patient encouraged to increase protein and vitamin C intake while taking caution to avoid high carbohydrate and/or sugar intake. He was educated on the importance of protein and its role in wound healing. The patient was educated on the importance of smoking cessation. Labs/cultures/imaging: Cultures deferred today. Labs from [facility] were reviewed (08/13/2020; CBCD, CMP): RBC 4.04 (L), platelets 416 (H), albumin 3.7 (L), estimated GFR >60. Follow-up: Return to clinic in 3 weeks for re-evaluation. Return sooner or report to the emergency room should symptoms worsen, or new symptoms arise. Note: [employer] speech recognition machine maintenance mechanic software was used to create portions of this document. Sound-alike and misspelled words, as well as other machine maintenance mechanic errors may be contained in the documentation. Office Visits / Consults: [id number] OV L3 Est
== END 2020-10-10 23:59 ==
LOC: WC 08:30
PROVIDERS: PCP Internal Medicine; Referring Provider Nurse Practitioner Primary Care; Visit Provider Nurse Practitioner Family
DX: L98.492 Non-pressure chronic ulcer of skin of other sites with fat layer exposed (principal); C67.9 Malignant neoplasm of bladder, unspecified; F11.11 Opioid abuse, in remission; C77.9 Secondary and unspecified malignant neoplasm of lymph node, unspecified; J44.9 Chronic obstructive pulmonary disease, unspecified; E78.5 Hyperlipidemia, unspecified; I73.9 Peripheral vascular disease, unspecified; I10 Essential (primary) hypertension; Z87.891 Personal history of nicotine dependence; Z93.6 Other artificial openings of urinary tract status
CPT/HCPCS: 11042; 99213; G0463

== ENCOUNTER 2020-11-09 09:30 | Outpatient (RCR) | payer OTHER, SELFPAY ==
[2020-10-11 00:40] VITALS: BP 131/64; PULSE 85; RESP 16; TEMP 36.1
[2020-10-19 08:38] VITALS: BP 153/97; PULSE 89; TEMP 36.4
--- NOTE | 2020-10-19 11:46 | PCM.WC.PN ---
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 He has a past medical history significant for stage IV bladder cancer, hypertension, hyperlipidemia, COPD, peripheral arterial disease, carotid stenosis and past heroin abuse. In 2019, he underwent a total cystectomy for stage IV bladder cancer. He has a urostomy. He reports that since that time, he had this area of his incision which would not heal. In February 2019 he underwent debridement of this area of his abdomen, and it subsequently healed. However, the area reopened and has remained open since May of 2019. He reports he has been cleansing the area with antibacterial soap and water daily. He at times uses iodoform gauze to dress his abdominal ulcer. He reports a small amount of brownish colored drainage, which is malodorous. 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 The patient is a former cigarette smoker, and currently smokes 1 cigar a day. He has had a chronic poor appetite and poor nutritional intake. He has chronic nausea and gastrointestinal fluctuations between constipation and diarrhea. The patient denies any fever, or chills. He denies any increasing pain, redness, swelling, or purulent drainage from affected area. Progress of Wound: The patient returns for a follow-up visit. He has been using hydrogel to his abdomen ulcer and tolerating this well. A retained suture was removed in its entirety from the wound on 08/24/20. The patient denies any fever, nausea, vomiting, or diarrhea. He had chills one evening (a few days following his 2nd COVID-19 vaccine) which resolved spontaenously. In the past 3 weeks, he has had an increase in drainage from his abdominal ulcer, some of which has been foul-smelling. The drainage is yellow-brown in color. The ulcer is again open today. He otherwise denies any periulcer erythema or tenderness, and reports feeling well. - Physical Exam Vital Signs Temp Pulse Resp BP 97.5 F L 89 16 153/97 H 10/19/20 08:38 10/19/20 08:38 10/11/20 00:40 10/19/20 08:38 General: Alert, Cooperative, No apparent distress HEENT: Atraumatic, Normocephalic Oral: Moist Mucosa Lungs: Normal air movement Abdomen: - - Stoma is pink and moist. Extremities: Capillary Refill Less than 3 Seconds Skin: Ulcer/ Wound - Infraumbilical ulcer is increased in size. There is a moderate amount of yellow?brown drainage present. Tissue appears healthy with good granulation. No periulcer erythema, warmth or tenderness. No malodor or purulence of drainage noted. Wound Measurements and Assessment WC - Nurse 1 - General Ulcer Measurement Start: 10/19/20 08:38 Freq: Status: Active Protocol: Activity Type Activity Date Activity User E-Sign Co-Sign Detail Recorded Client Recorded Date Recorded By Document 10/19/20 08:38 KR [id number] 10/19/20 08:43 KAREN 10/19/20 08:38 Wound Center Nurse 1 [Ulcer Assessment] # 1 Abdomen -Current Size (cm) - Length 1 -Current Size (cm) - Width 1.1 -Current Size (cm) - Depth 0.1 -Total Square Cm 1.1 -Exudate Amt Large -Exudate Type Yellow/Green -Wound Margin Distinct, Outline Attached -Granulation Amt None Present (0 %) -Necrosis Amt Large (67-100%) -Necrotic Tissue Type Adherent Slough -Texture (Marichuy-wound Skin Appearance) Assessed, Scarring -Moisture ([place]uy-wound Skin Appearance No Abnormality, ) Assessed -Color ([place]uy-wound Skin Appearance) No Abnormality, Assessed -Temperature ([place]uy-wound Skin No Abnormality Appearance) (Pt Warm) -Tenderness on Palpation ([place]uy-wound No Skin Appearance) -Ulcer Cleansing Rinsed/ Irrigated with Saline -Foul Odor after Cleansing No -Anesthetic Used 4% Lidocaine Solution WC - Nurse 3 - General Ulcer D/C NN Start: 10/19/20 08:38 Freq: Status: Active Protocol: Activity Type Activity Date Activity User E-Sign Co-Sign Detail Recorded Client Recorded Date Recorded By Document 10/19/20 09:19 KAREN [id number] 10/19/20 09:20 KAREN 10/19/20 09:19 Wound Care Nurse 3 [Wound Dressing] -Ulcer Cleansing Rinsed/ Irrigated with Saline -Primary Dressing Applied Promogran Franci Matter -Primary Dressing Covered/Secured Dry Gauze, with Secured with Tape -Promogran Franci Matter 1 Pain Scale: 0-10 Numeric [Pain] -Is Patient Pain Free? Yes WC - Visit Discharge [Visit Discharge Information] -Discharge Condition Stable -Ambulatory Status Ambulatory -Transportation Private Auto -Accompanied by Psych/Mental Status: Normal Affect, Appropriate Debridement Note Post-Debridement Measurements/Treatment WC - Nurse 3 - General Ulcer D/C NN Start: 10/19/20 08:38 Freq: Status: Active Protocol: Activity Type Activity Date Activity User E-Sign Co-Sign Detail Recorded Client Recorded Date Recorded By Document 10/19/20 09:19 KAREN [id number] 10/19/20 09:20 KAREN 10/19/20 09:19 Wound Care Nurse 3 # 1 Abdomen -Ulcer Cleansing Rinsed/ Irrigated with Saline -Primary Dressing Applied Promogran Franci Matter -Primary Dressing Covered/Secured with Dry Gauze, Secured with Tape -Promogran Franci Matter 1 Pain Scale: 0-10 Numeric Is Patient Pain Free? Yes - Visit Discharge Discharge Condition Stable Ambulatory Status Ambulatory Transportation Private Auto Accompanied by Wound debrided: Infraumbilical ulcer Laterality: Not Applicable Type of Debridement: Excisional debridement Anesthesia Used: 4% Lidocaine Solution Depth: in the subcutaneous layer Percentage of wound debrided: 100 Instrument Used: 3mm curette Tissue Removed: Slough and devitalized tissue Severity: Fat Layer Exposed Amount of bleeding with debridement: Mild Bleeding Controlled with: Pressure Patient tolerated procedure well Assessment/Plan Active Problems Skin ulcer of abdominal wall with fat layer exposed (Chronic) Metastasis from bladder cancer (Chronic) PAD (peripheral artery disease) (Chronic) History of heroin abuse (Chronic) Wound dehiscence, surgical (Chronic) Assessment: As above Plan: Debridement performed today in clinic as annotated above. Franci applied. I will have the patient resume Franci dressing changes every 2 to 3 days. Wash periulcer area with antibacterial soap and water with each dressing change. Avoid pressure/friction of clothing waistbands at the site of the abdominal ulcer. Diet: Patient encouraged to increase protein and vitamin C intake while taking caution to avoid high carbohydrate and/or sugar intake. He was educated on the importance of protein and its role in wound healing. The patient was educated on the importance of smoking cessation. Labs/cultures/imaging: Culture was collected today. He will be empirically started on Bactrim; antibiotics will be changed as needed based on culture results. Labs from [facility] were reviewed (08/13/2020; [facility], CMP): RBC 4.04 (L), platelets 416 (H), albumin 3.7 (L), estimated GFR >60. Follow-up: Return to clinic in 2 weeks for re-evaluation. Return sooner or report to the emergency room should symptoms worsen, or new symptoms arise. Note: [employer] speech recognition basketballs and footballs reverser software was used to create portions of this document. Sound-alike and misspelled words, as well as other basketballs and footballs reverser errors may be contained in the documentation. 111xxx-113xx: [id number] Kellie subq tissue 20 sq cm/<
[2020-11-09 09:25] VITALS: BP 116/73; PULSE 103; TEMP 36.4
--- NOTE | 2020-11-09 13:43 | PN.PCM_ITS ---
History of Present Illness Date of Service: 11/09/20 Chief Complaint: Nonhealing abdominal ulcer History of Wound: Osvaldo Roman presents to the wound healing center on 07/27/2020 for evaluation of a nonhealing abdominal ulcer. He has a past medical history significant for stage IV bladder cancer, hypertension, hyperlipidemia, COPD, peripheral arterial disease, carotid stenosis and past heroin abuse. In 2019, he underwent a total cystectomy for stage IV bladder cancer. He has a urostomy. He reports that since that time, he had this area of his incision which would not heal. In February 2019 he underwent debridement of this area of his abdomen, and it subsequently healed. However, the area reopened and has remained open since May of 2019. He reports he has been cleansing the area with antibacterial soap and water daily. He at times uses iodoform gauze to dress his abdominal ulcer. He reports a small amount of brownish colored drainage, which is malodorous. 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 The patient is a former cigarette smoker, and currently smokes 1 cigar a day. He has had a chronic poor appetite and poor nutritional intake. He has chronic nausea and gastrointestinal fluctuations between constipation and diarrhea. The patient denies any fever, or chills. He denies any increasing pain, redness, swelling, or purulent drainage from affected area. Progress of Wound: The patient returns for a follow-up visit. He has been using Franci to his abdomen ulcer and tolerating this well. A retained suture was removed in its entirety from the wound on 08/24/20. Prior to his last visit, he had an increase in drainage from his abdominal ulcer, some of which has been foul-smelling. The drainage was yellow-brown in color. The ulcer had reopened at that time. He was started on Bactrim and a wound culture was collected. His culture results showed very rare Staphylococcus aureus, susceptible to Bactrim. He reports resolution of malodorous drainage with the use of antibiotics. He denies any periulcer erythema or tenderness, and reports feeling well. Today he has a tunnel present which was not previously noted. Objective Data Objective Data Vital Signs: Vital Signs Temp Pulse Resp BP 97.5 F L 103 H 16 116/73 11/09/20 09:25 11/09/20 09:25 10/11/20 00:40 11/09/20 09:25 Lab / Micro Data Micro: Microbiology 10/19/20 09:10 Wound Abcess - Abdominal Gram Stain - Final 10/19/20 09:10 Wound Abcess - Abdominal Wound Culture - Final Staphylococcus aureus 10/19/20 09:10 Wound Abcess - Abdominal Anaerobic Culture - Final No anaerobic bacteria isolated. Assessment & Plan Assessment/Plan (1) Skin ulcer of abdominal wall with fat layer exposed: Status: Chronic Code(s): L98.492 - Non-pressure chronic ulcer of skin of other sites with fat layer exposed (2) Wound dehiscence, surgical: Status: Chronic Code(s): T81.31XA - Disruption of external operation (surgical) wound, not elsewhere classified, initial encounter Qualifiers: Encounter type: subsequent encounter Qualified Code(s): T81.31XD - Disruption of external operation (surgical) wound, not elsewhere classified, subsequent encounter (3) Cancer of the bladder, stage IV: Status: Resolved Code(s): C67.9 - Malignant neoplasm of bladder, unspecified (4) 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 Aquacel Ag rope packed into tunnel and wound. At home wound care instructions: Perform Aquacel Ag wound packing daily. Wash periulcer area with antibacterial soap and water with each dressing change. Avoid pressure/friction of clothing waistbands at the site of the abdominal ulcer. Diet: Patient encouraged to increase protein and vitamin C intake while taking caution to avoid high carbohydrate and/or sugar intake. He was educated on the importance of protein and its role in wound healing. The patient was educated on the importance of smoking cessation. Labs/cultures/imaging: Culture results reviewed as annotated above. No further antibiotics are warranted at this time. Labs from [facility] were reviewed (08/13/2020; [facility], CMP): RBC 4.04 (L), platelets 416 (H), albumin 3.7 (L), estimated GFR >60. Follow-up: Return to clinic in 2 weeks for re-evaluation. Return sooner or report to the emergency room should symptoms worsen, or new symptoms arise. Note: [employer] speech recognition telephone services sales representative software was used to create portions of this document. Sound-alike and misspelled words, as well as other telephone services sales representative errors may be contained in the documentation. Charges/Coding Procedures Integumentary 111xxx-113xx: [id number] Kellie subq tissue 20 sq cm/< Physical Exam Const alert, no apparent distress and healthy appearing General Appearance: cooperative, comfortable and well kempt HEENT Head and Scalp: normocephalic and atraumatic Neck supple and no JVD Resp normal respiratory effort, normal air movement and no use of accessory muscles GI non-distended Palpation: soft Narrative: Urostomy present. Stoma is red and moist. Skin Wounds: wounds noted No malodorous Wound Narrative: Infraumbilical ulcer is increased in size today, and a tunnel is present. There is no periulcer erythema or swelling or warmth. No purulent/malodorous drainage. Neuro moves all extremities Sensorium / Orientation: awake and alert Psych mental status grossly normal, cooperative and affect normal Appearance: grossly normal Debridement Note Debridement Note Post-Debridement Measurements and Additional Note: Post-Debridement Measure ments/Treatment WC - Nurse 2 - General Ulcer CM Notes Start: 10/19/20 08:38 Freq: Status: Active Protocol: Activity Type Activity Date Activity User E-Sign Co-Sign Detail Recorded Client Recorded Date Recorded By Document 10/19/20 13:27 PL [id number] 10/19/20 13:27 PL Document 11/09/20 13:37 PL [id number] 11/09/20 13:38 PL 10/19/20 11/09/20 13:27 13:37 Wound Center Nurse 2 # 1 Abdomen -Time 09:07 09:44 -Correct Patient Yes Yes -Correct Side, Site, Position Yes Yes -Correct Procedure Yes Yes -Procedure Performed Yes Yes -Type of Procedure Debridement Debridement -Clinical Debridement Subcutaneous Subcutaneous -Tissue Removed Subcutaneous Subcutaneous -Post Debridement (cm) - Length 0.4 0.7 -Post Debridement (cm) - Width 0.3 0.9 -Post Debridement (cm) - Depth 0.3 0.3 -Total Square (Post) (cm) 0.12 0.63 -Area of Debridement (cm) - Length 0.4 0.7 -Area of Debridement (cm) - Width 0.3 0.9 -Total Square (Area) (cm) 0.12 0.63 -Tunneling No Yes -Tunneling Position (O'clock) 2 -Tunneling Distance (cm) 2.0 -Undermining/Tunneling No No -Circular Undermining No No -Wound/Ulcer Outcome Not Healed Not Healed -Ulcer Cleansing Rinsed/ Rinsed/ Irrigated with Irrigated with Saline Saline -Foul Odor after Cleansing No No -Bioengineered Tissue No No -Bleeding Controlled with Pressure -Treatment Response Procedure Tolerated Well -Debridement - Subq, 1st 20sq cm Yes Yes Pain Scale: 0-10 Numeric Is Patient Pain Free? Yes Yes - Nurse 3 - General Ulcer D/C NN Start: 10/19/20 08:38 Freq: Status: Active Protocol: Activity Type Activity Date Activity User E-Sign Co-Sign Detail Recorded Client Recorded Date Recorded By Document 10/19/20 09:19 KR [id number] 10/19/20 09:20 KR Document 11/09/20 10:03 KR [id number] 11/09/20 10:04 KR 10/19/20 11/09/20 09:19 10:03 Wound Care Nurse 3 # 1 Abdomen -Ulcer Cleansing Rinsed/ Irrigated with Saline -Primary Dressing Applied Promogran Aquacel Extra Franci Matter -Primary Dressing Covered/Secured with Dry Gauze, Dry Gauze, Secured with Secured with Tape Tape -Aquacel Extra 1 -Promogran Franci Matter 1 Pain Scale: 0-10 Numeric Is Patient Pain Free? Yes Yes - Visit Discharge Discharge Condition Stable Stable Ambulatory Status Ambulatory Ambulatory Transportation Private Auto Private Auto Accompanied by Wound debrided: Infraumbilical ulcer Laterality: Not Applicable Type of Debridement: Excisional debridement Anesthesia Used: 4% Lidocaine Solution Depth: in the subcutaneous layer Percentage of wound debrided: 100 Instrument Used: 3mm curette Tissue Removed: Slough and devitalized tissue Severity: Fat Layer Exposed Amount of bleeding with debridement: Mild Bleeding Controlled with: Pressure Patient tolerated procedure: Patient did not tolerate procedure well
== END 2020-11-09 23:59 ==
LOC: WC 09:30
PROVIDERS: PCP Internal Medicine; Referring Provider Nurse Practitioner Primary Care; Visit Provider Nurse Practitioner Family
DX: L98.492 Non-pressure chronic ulcer of skin of other sites with fat layer exposed (principal); T81.31XA Disruption of external operation (surgical) wound, not elsewhere classified, initial encounter; C67.9 Malignant neoplasm of bladder, unspecified; F11.11 Opioid abuse, in remission; I73.9 Peripheral vascular disease, unspecified; C77.9 Secondary and unspecified malignant neoplasm of lymph node, unspecified; J44.9 Chronic obstructive pulmonary disease, unspecified; I10 Essential (primary) hypertension; E78.5 Hyperlipidemia, unspecified; Z87.891 Personal history of nicotine dependence; Z93.6 Other artificial openings of urinary tract status
CPT/HCPCS: 11042; 87070; 87075; 87077; 87186; 87205

== ENCOUNTER 2020-12-07 08:15 | Outpatient (RCR) | payer OTHER, SELFPAY ==
[2020-11-10 00:39] VITALS: BP 116/73; PULSE 103; RESP 16; TEMP 36.4
[2020-11-23 09:27] VITALS: BP 141/73; PULSE 102; RESP 20; TEMP 36.2
--- NOTE | 2020-11-23 12:41 | PN.PCM_ITS ---
History of Present Illness Date of Service: 11/23/20 Chief Complaint: Nonhealing abdominal ulcer History of Wound: Osvaldo Roman presents to the wound healing center on 07/27/2020 for evaluation of a nonhealing abdominal ulcer. He has a past medical history significant for stage IV bladder cancer, hypertension, hyperlipidemia, COPD, peripheral arterial disease, carotid stenosis and past heroin abuse. In 2018, he underwent a total cystectomy for stage IV bladder cancer. He has a urostomy. He reports that since that time, he had this area of his incision which would not heal. In February 2019 he underwent debridement of this area of his abdomen, and it subsequently healed. However, the area reopened and has remained open since May of 2019. He reports he has been cleansing the area with antibacterial soap and water daily. He at times uses iodoform gauze to dress his abdominal ulcer. He reports a small amount of brownish colored drainage, which is malodorous. 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 The patient is a former cigarette smoker, and currently smokes 1 cigar a day. He has had a chronic poor appetite and poor nutritional intake. He has chronic nausea and gastrointestinal fluctuations between constipation and diarrhea. The patient denies any fever, or chills. He denies any increasing pain, redness, swelling, or purulent drainage from affected area. Progress of Wound: The patient returns for reevaluation of his infra umbilical ulcer. His support person reports it has been difficult to pack the tunnel of his wound with Aquacel Ag rope in the past week. The patient denies fever, chills, or decrease in appetite. The patient has not had increased redness, swelling, or purulent/malodorous drainage from affected area. Objective Data Objective Data Vital Signs: Vital Signs Temp Pulse Resp BP 97.2 F L 102 H 20 H 141/73 H 11/23/20 09:27 11/23/20 09:27 11/23/20 09:27 11/23/20 09:27 Assessment & Plan Assessment/Plan (1) Skin ulcer of abdominal wall with fat layer exposed: (2) Wound dehiscence, surgical: QUALIFIERS: Encounter type: subsequent encounter Qualified Code(s): T81.31XD - Disruption of external operation (surgical) wound, not elsewhere classified, subsequent encounter (3) Cancer of the bladder, stage IV: (4) Metastasis from bladder cancer: (5) History of heroin abuse: (6) PAD (peripheral artery disease): PLAN: Debridement performed today in clinic as annotated above. Iodoform ribbon packed into tunnel and wound. At home wound care instructions: Perform iodoform wound packing daily. Wash periulcer area with antibacterial soap and water with each dressing change. Avoid pressure/friction of clothing waistbands at the site of the abdominal ulcer. Diet: Patient encouraged to increase protein and vitamin C intake while taking caution to avoid high carbohydrate and/or sugar intake. He was educated on the importance of protein and its role in wound healing. The patient was educated on the importance of smoking cessation. Labs/cultures/imaging: Culture results reviewed as annotated above. No further antibiotics are warranted at this time. Labs from [facility] were reviewed (08/13/2020; [facility], CMP): RBC 4.04 (L), platelets 416 (H), albumin 3.7 (L), estimated GFR >60. Follow-up: Return to clinic in 2 weeks for re-evaluation. Return sooner or report to the emergency room should symptoms worsen, or new symptoms arise. Note: [facility] speech recognition last sawyer software was used to create portions of this document. Sound-alike and misspelled words, as well as other last sawyer errors may be contained in the documentation. Charges/Coding Procedures Integumentary [id number]: [id number] Kellie subq tissue 20 sq cm/< Physical Exam Const alert, no apparent distress and healthy appearing General Appearance: cooperative, comfortable and well kempt HEENT Head and Scalp: normocephalic and atraumatic Neck supple and no JVD Resp normal respiratory effort, normal air movement and no use of accessory muscles GI non-distended Palpation: soft Narrative: Urostomy present. Stoma is red and moist. Skin Wounds: wounds noted No malodorous Wound Narrative: Infraumbilical ulcer is decreased in size today, however the tunnel has not improved. There is no periulcer erythema or swelling or warmth. No purulent/malodorous drainage. Neuro moves all extremities Sensorium / Orientation: awake and alert Psych mental status grossly normal, cooperative and affect normal Appearance: grossly normal Debridement Note Debridement Note Post-Debridement Measurements and Additional Note: Post-Debridement Measurements/Treatment SP - Nurse 1 - General Ulcer Assessment Start: 11/23/20 09:27 Freq: Status: Active Protocol: YOVANI Activity Type Activity Date Activity User E-Sign Co-Sign Detail Recorded Client Recorded Date Recorded By Document 11/23/20 09:27 DL [id number] 11/23/20 09:29 DL 11/23/20 09:27 WC - Today's Visit Information Type of service Follow-up Visit (Physician/MACHINE ASSEMBLER FOR PULLER OVER ) Arrival Mode Ambulatory Transfer Assistance None Patient Identification Verified (Name & Yes ) Patient Requires Transmission-Based No Precautions Vital Signs Temperature (97.8 F-99.1 F) 97.2 F L Temperature Source Temporal Pulse Rate (60-100) 102 H Pulse Location Monitor Respiratory Rate (12-18) 20 H Respiratory rate source Observation Blood Pressure (90/60-120/80) 141/73 H Blood Pressure Mean (mm Hg) 95 Source Monitor History Since Last Visit- (Skip if this is Patient's initial visit) Have you changed medications since your No last visit? Any new allergies or adverse reactions No Had a fall/change in ADL's that may No increase risk of falls Signs or symptoms of abuse and/or No neglect since last visit Have you been in the hospital since your No last visit? Has dressing in place as prescribed Yes Has compression in place as prescribed N/A Has offloadiing in place as prescribed N/A Experienced any changes in pain level or No management Pain Scale: 0-10 Numeric Is Patient Pain Free? Yes SP - Nurse 1 - General Ulcer Measurement Start: 11/23/20 09:27 Freq: Status: Active Protocol: Activity Type Activity Date Activity User E-Sign Co-Sign Detail Recorded Client Recorded Date Recorded By Document 11/23/20 09:27 DL [id number] 11/23/20 09:29 DL 11/23/20 09:27 Wound Center Nurse 1 # 1 Abdomen -Current Size (cm) - Length 0.5 -Current Size (cm) - Width 0.6 -Current Size (cm) - Depth 0.2 -Total Square Cm 0.30 -Photo Taken No -Tunneling Position (O'clock) 2 -Tunneling Distance (cm) 1 -Exudate Amt Small -Exudate Type Serosanguineous -Wound Margin Distinct, Outline Attached -Granulation Amt Small (1-33%) -Granulation Quality Red -Necrosis Amt Small (1-33%) -Necrotic Tissue Type Adherent Slough -Structure Exposed None/Limited to Skin Breakdown -Texture (Marichuy-wound Skin Appearance) Scarring -Moisture (Marichuy-wound Skin Appearance) No Abnormality -Color (Marichuy-wound Skin Appearance) No Abnormality -Temperature (Marichuy-wound Skin No Abnormality Appearance) (Pt Warm) -Ulcer Cleansing Wound Cleanser -Foul Odor after Cleansing No -Anesthetic Used 5% Lidocaine Gel WC - Nurse 2 - General Ulcer CM Notes Start: 11/23/20 09:27 Freq: Status: Active Protocol: Activity Type Activity Date Activity User E-Sign Co-Sign Detail Recorded Client Recorded Date Recorded By Document 11/23/20 09:54 JYOTI [id number] 11/23/20 09:57 JYOTI 11/23/20 09:54 Wound Center Nurse 2 -Time 09:55 -Correct Patient Yes -Correct Side, Site, Position Yes -Correct Procedure Yes -Procedure Performed Yes -Type of Procedure Debridement -Clinical Debridement Subcutaneous -Tissue Removed Subcutaneous -Post Debridement (cm) - Length 0.6 -Post Debridement (cm) - Width 0.7 -Post Debridement (cm) - Depth 0.3 -Total Square (Post) (cm) 0.42 -Area of Debridement (cm) - Length 0.6 -Area of Debridement (cm) - Width 0.7 -Total Square (Area) (cm) 0.42 -Tunneling Yes -Tunneling Position (O'clock) 2 -Tunneling Distance (cm) 1.8 -Undermining/Tunneling No -Circular Undermining No -Wound/Ulcer Outcome Not Healed -Ulcer Cleansing Rinsed/ Irrigated with Saline -Foul Odor after Cleansing No -Bioengineered Tissue No -Bleeding Controlled with Pressure -Offloading No -Treatment Response Procedure Tolerated Well -Debridement - Subq, 1st 20sq cm Yes Pain Scale: 0-10 Numeric Is Patient Pain Free? Yes Wound debrided: Infraumbilical ulcer Laterality: Not Applicable Type of Debridement: Excisional debridement Anesthesia Used: 5% Lidocaine Gel Depth: in the subcutaneous layer Percentage of wound debrided: 100 Instrument Used: 3mm curette Tissue Removed: Slough and devitalized tissue Severity: Fat Layer Exposed Amount of bleeding with debridement: Mild Bleeding Controlled with: Pressure Patient tolerated procedure: Patient tolerated procedure well
[2020-12-07 08:29] VITALS: BP 126/92; PULSE 108; RESP 18; TEMP 36.5
--- NOTE | 2020-12-07 12:04 | PN.PCM_ITS ---
History of Present Illness Date of Service: 12/07/20 Chief Complaint: Nonhealing abdominal ulcer History of Wound: Osvaldo Roman presents to the wound healing center on 07/27/2020 for evaluation of a nonhealing abdominal ulcer. He has a past medical history significant for stage IV bladder cancer, hypertension, hyperlipidemia, COPD, peripheral arterial disease, carotid stenosis and past heroin abuse. In 2018, he underwent a total cystectomy for stage IV bladder cancer. He has a urostomy. He reports that since that time, he had this area of his incision which would not heal. In February 2019 he underwent debridement of this area of his abdomen, and it subsequently healed. However, the area reopened and has remained open since May of 2019. He reports he has been cleansing the area with antibacterial soap and water daily. He at times uses iodoform gauze to dress his abdominal ulcer. He reports a small amount of brownish colored drainage, which is malodorous. 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 The patient is a former cigarette smoker, and currently smokes 1 cigar a day. He has had a chronic poor appetite and poor nutritional intake. He has chronic nausea and gastrointestinal fluctuations between constipation and diarrhea. The patient denies any fever, or chills. He denies any increasing pain, redness, swelling, or purulent drainage from affected area. Progress of Wound: The patient returns for reevaluation of his infra umbilical ulcer. His support person reports it has been difficult to pack the tunnel of his wound with iodoform gauze in the past week and for the last few days has been applying hydrogel and covering with gauze. The patient denies fever, chills, or decrease in appetite. The patient has not had increased redness, swelling, or purulent/malodorous drainage from affected area. Subjective Subjective see above progress of wound. Patient is seen as a courtesy visit for Taina Ulrich CNP. Objective Data Objective Data Vital Signs: Vital Signs Temp Pulse Resp BP 97.7 F L 108 H 18 126/92 H 12/07/20 08:29 12/07/20 08:29 12/07/20 08:29 12/07/20 08:29 Physical Exam Const alert, oriented x3 and no apparent distress Skin Wounds: wounds noted drainage serosanguineous, open and No surrounding erythema Wound Narrative: as noted in clinical panel Psych cooperative and affect normal Debridement Note Debridement Note Post-Debridement Measurements and Additional Note: Post-Debridement Measur ements/Treatment WC - Nurse 1 - General Ulcer Assessment Start: 11/23/20 09:27 Freq: Status: Active Protocol: YOVANI Activity Type Activity Date Activity User E-Sign Co-Sign Detail Recorded Client Recorded Date Recorded By Document 11/23/20 09:27 DL [id number] 11/23/20 09:29 DL Document 12/07/20 08:29 DL [id number] 12/07/20 08:33 DL 11/23/20 12/07/20 09:27 08:29 WC - Today's Visit Information Type of service Follow-up Visit Follow-up Visit (Physician/OUTSIDE INSTALLER APPRENTICE (Physician/OUTSIDE INSTALLER APPRENTICE ) ) Arrival Mode Ambulatory Transfer Assistance None None Patient Identification Verified (Name & Yes Yes ) Patient Requires Transmission-Based No No Precautions Vital Signs Temperature (97.8 F-99.1 F) 97.2 F L 97.7 F L Temperature Source Temporal Temporal Pulse Rate (60-100) 102 H 108 H Pulse Location Monitor Monitor Respiratory Rate (12-18) 20 H 18 Respiratory rate source Observation Observation Blood Pressure (90/60-120/80) 141/73 H 126/92 H Blood Pressure Mean (mm Hg) 95 103 Source Monitor Monitor History Since Last Visit- (Skip if this is Patient's initial visit) Have you changed medications since your No No last visit? Any new allergies or adverse reactions No No Had a fall/change in ADL's that may No No increase risk of falls Signs or symptoms of abuse and/or No No neglect since last visit Have you been in the hospital since your No No last visit? Has dressing in place as prescribed Yes Yes Has compression in place as prescribed N/A Has offloadiing in place as prescribed N/A N/A Experienced any changes in pain level or No management Pain Scale: 0-10 Numeric Is Patient Pain Free? Yes Yes SP - Nurse 1 - General Ulcer Measurement Start: 11/23/20 09:27 Freq: Status: Active Protocol: Activity Type Activity Date Activity User E-Sign Co-Sign Detail Recorded Client Recorded Date Recorded By Document 11/23/20 09:27 DL [id number] 11/23/20 09:29 DL Document 12/07/20 08:29 DL [id number] 12/07/20 08:33 DL 11/23/20 12/07/20 09:27 08:29 Wound Center Nurse 1 # 1 Abdomen -Current Size (cm) - Length 0.5 0.2 -Current Size (cm) - Width 0.6 0.2 -Current Size (cm) - Depth 0.2 1.2 -Total Square Cm 0.30 0.04 -Photo Taken No No -Tunneling Position (O'clock) 2 -Tunneling Distance (cm) 1 -Exudate Amt Small Small -Exudate Type Serosanguineous Serosanguineous -Wound Margin Distinct, Distinct, Outline Outline Attached Attached -Granulation Amt Small (1-33%) Small (1-33%) -Granulation Quality Red Red -Necrosis Amt Small (1-33%) Small (1-33%) -Necrotic Tissue Type Adherent Slough Adherent Slough -Structure Exposed None/Limited to None/Limited to Skin Breakdown Skin Breakdown -Texture (Marichuy-wound Skin Appearance) Scarring Scarring -Moisture (Marichuy-wound Skin Appearance) No Abnormality No Abnormality -Color (Marichuy-wound Skin Appearance) No Abnormality No Abnormality -Temperature (Marichuy-wound Skin No Abnormality No Abnormality Appearance) (Pt Warm) (Pt Warm) -Tenderness on Palpation (Marichuy-wound No Skin Appearance) -Ulcer Cleansing Wound Cleanser Rinsed/ Irrigated with Saline -Foul Odor after Cleansing No No -Anesthetic Used 5% Lidocaine 4% Lidocaine Gel Solution WC - Nurse 2 - General Ulcer CM Notes Start: 11/23/20 09:27 Freq: Status: Active Protocol: Activity Type Activity Date Activity User E-Sign Co-Sign Detail Recorded Client Recorded Date Recorded By Document 11/23/20 09:54 JF [id number] 11/23/20 09:57 JF Document 12/07/20 09:24 PL [id number] 12/07/20 09:25 PL 11/23/20 12/07/20 09:54 09:24 Wound Center Nurse 2 # 1 Abdomen -Time 09:55 08:20 -Correct Patient Yes Yes -Correct Side, Site, Position Yes Yes -Correct Procedure Yes Yes -Procedure Performed Yes Yes -Type of Procedure Debridement Debridement -Clinical Debridement Subcutaneous Epidermis / Dermis -Tissue Removed Subcutaneous Epidermis, Dermis -Post Debridement (cm) - Length 0.6 0.2 -Post Debridement (cm) - Width 0.7 0.2 -Post Debridement (cm) - Depth 0.3 1.1 -Total Square (Post) (cm) 0.42 0.04 -Area of Debridement (cm) - Length 0.6 0.2 -Area of Debridement (cm) - Width 0.7 0.2 -Total Square (Area) (cm) 0.42 0.04 -Tunneling Yes No -Tunneling Position (O'clock) 2 -Tunneling Distance (cm) 1.8 -Undermining/Tunneling No No -Circular Undermining No No -Wound/Ulcer Outcome Not Healed Not Healed -Ulcer Cleansing Rinsed/ Rinsed/ Irrigated with Irrigated with Saline Saline -Foul Odor after Cleansing No No -Bioengineered Tissue No No -Bleeding Controlled with Pressure -Offloading No -Treatment Response Procedure Tolerated Well -Debridement - Open, 1st 20sq cm Yes -Debridement - Subq, 1st 20sq cm Yes Pain Scale: 0-10 Numeric Is Patient Pain Free? Yes Yes - Nurse 3 - General Ulcer D/C NN Start: 11/23/20 09:27 Freq: Status: Active Protocol: Activity Type Activity Date Activity User E-Sign Co-Sign Detail Recorded Client Recorded Date Recorded By Document 12/07/20 09:05 MAIDA [id number] 12/07/20 09:06 MAIDA 12/07/20 09:05 Wound Care Nurse 3 # 1 Abdomen -Ulcer Cleansing Rinsed/ Irrigated with Saline -Foul Odor after Cleansing No -Other Dressing hydrogel -Primary Dressing Covered/Secured with Dry Gauze & Roll Gauze, Secured with Tape Treatment Response Procedure Tolerated Well Pain Scale: 0-10 Numeric Is Patient Pain Free? Yes - Visit Discharge Discharge Condition Stable Ambulatory Status Ambulatory Transportation Private Auto Wound debrided: Abdomen Laterality: Right Type of Debridement: Selective debridement Anesthesia Used: 4% Lidocaine Solution Depth: Down to and including healthy tissue and in the subcutaneous layer Instrument Used: - (probe) Tissue Removed: Yellow slough, devitalized tissue Severity: Fat Layer Exposed Amount of bleeding with debridement: Mild Bleeding Controlled with: Compression and gauze Patient tolerated procedure: Patient tolerated procedure well Assessment/Plan Assessment/Plan (1) Skin ulcer of abdominal wall with fat layer exposed: CODE(S): L98.492 - Non-pressure chronic ulcer of skin of other sites with fat layer exposed (2) Metastasis from bladder cancer: CODE(S): C79.9 - Secondary malignant neoplasm of unspecified site; C67.9 - Malignant neoplasm of bladder, unspecified (3) COPD (chronic obstructive pulmonary disease): CODE(S): J44.9 - Chronic obstructive pulmonary disease, unspecified QUALIFIERS: COPD type: unspecified COPD Qualified Code(s): J44.9 - Chronic obstructive pulmonary disease, unspecified (4) Cancer of the bladder, stage IV: CODE(S): C67.9 - Malignant neoplasm of bladder, unspecified (5) History of heroin abuse: CODE(S): F11.11 - Opioid abuse, in remission (6) Wound dehiscence, surgical: CODE(S): T81.31XA - Disruption of external operation (surgical) wound, not elsewhere classified, initial encounter QUALIFIERS: Encounter type: subsequent encounter Qualified Code(s): T81.31XD - Disruption of external operation (surgical) wound, not elsewhere classified, subsequent encounter PLAN: Debridement performed today in clinic as annotated above.? Hydrogel applied to wound and covered with gauze to be changed daily unless it begins to look macerated then they were instructed to change every other day. At home wound care instructions: Perform collagen hydrogel dressings daily.? Wash periulcer area with antibacterial soap and water with each dressing change.? Avoid pressure/friction of clothing waistbands at the site of the abdominal ulcer.? Diet: Patient encouraged to increase protein and vitamin C intake while taking caution to avoid high carbohydrate and/or sugar intake.? He was educated on the importance of protein and its role in wound healing.? The patient was educated on the importance of smoking cessation.? Labs/cultures/imaging: Culture results reviewed as annotated above.? No further antibiotics are warranted at this time. Labs from [facility] were reviewed (08/13/2020; [facility]CD, CMP): RBC 4.04 (L), platelets 416 (H), albumin 3.7 (L), estimated GFR >60.? Follow-up: Return to clinic in 2 weeks for re-evaluation.? Return sooner or report to the emergency room should symptoms worsen, or new symptoms arise.?
== END 2020-12-10 23:59 ==
LOC: WC 08:15
PROVIDERS: PCP Internal Medicine; Referring Provider Nurse Practitioner Primary Care; Visit Provider Nurse Practitioner Family
DX: L98.492 Non-pressure chronic ulcer of skin of other sites with fat layer exposed (principal); C79.9 Secondary malignant neoplasm of unspecified site; J44.9 Chronic obstructive pulmonary disease, unspecified; C67.9 Malignant neoplasm of bladder, unspecified; F11.11 Opioid abuse, in remission; T81.31XD Disruption of external operation (surgical) wound, not elsewhere classified, subsequent encounter; E78.5 Hyperlipidemia, unspecified; I10 Essential (primary) hypertension; I73.9 Peripheral vascular disease, unspecified; Z85.51 Personal history of malignant neoplasm of bladder; Z87.891 Personal history of nicotine dependence; Z93.6 Other artificial openings of urinary tract status
CPT/HCPCS: 11042; 97597